=== PATIENT | male | born 1960 | race Caucasian/White ===

== ENCOUNTER 2018-01-08 14:36 | Emergency (ER) | payer OTHER ==
[~2018-01-08] VITALS: Ht 162.6 cm; Wt 70.3 kg
[~2018-01-08 14:36] MED LIST: AMOXICILLIN500 M2 PO; ASPIRIN81 M4 PO; CLONAZEPAM0.5 M2 PO; COLACE100 M1 PO; DIAZEPAM2 M1 PO; DOCUSATE SODIU100 M3 PO; ESCITALOPRAM OX20 MG PO; FLUOXETINE HCL20 M2 PO; GABAPENTIN100 M2 PO; GABAPENTIN400 M2 PO; IBUPROFEN600 M1 PO; LIDOCAINE HCL V15 ML PO; LIDODERM1 EACH EXT; LISINOPRIL10 M1 PO; MELATONIN3 M4 PO; MELATONIN5 M7 PO; PENICILLIN V P500 M1 PO; RISPERDAL1 M1 PO; RISPERIDONE3 M1 PO; TAMSULOSIN HCL0.4 M1 PO; TOPIRAMATE25 M2 PO; TRAZODONE HCL50 M1 PO
--- NOTE | 2018-01-08 17:32 | ED PSYCHIATRIC COMPLAINT ---
See Addendum History of Present Illness General Chief Complaint: Psychiatric Related Complaint Stated Complaint: DEPRESSION, ANXIETY, DENIES SI/HI Source: patient Exam Limitations: no limitations Vital Signs & Intake/Output Vital Signs & Intake/Output Vital Signs Date Time Temp Pulse Resp B/P B/P Pulse O2 O2 Flow FiO2 Mean Ox Delivery Rate 01/09 1002 97.9 81 20 103/72 95 01/09 0657 97.7 74 18 141/80 99 Room Air 01/09 0220 97.4 67 18 98/54 96 Room Air 01/08 2237 97.5 60 18 103/59 97 Room Air Room Air 01/08 1908 98.0 77 20 127/85 96 01/08 1442 96.0 70 20 160/95 98 Room Air ED Intake and Output 01/09 0000 01/08 1200 Intake Total 120 Output Total Balance 120 Intake, Oral 120 Patient 155 lb Weight Weight Reported by Patient Measurement Method Allergies Coded Allergies: No Known Allergies (10/08/17) Reconcile Medications Aspirin (Aspirin*) 81 MG TAB.CHEW 1 TAB PO DAILY cardiac prevention Diazepam 2 MG TABLET 1 TAB PO TID anxiety Docusate Sodium 100 MG CAPSULE 1 CAP PO DAILY constipation Fluoxetine HCl 20 MG CAPSULE 3 CAP PO DAILY depression Gabapentin 400 MG CAPSULE 1 TAB PO TID anxiety Ibuprofen 600 MG TABLET 1 TAB PO Q6P PRN shoulder pain Lidocaine (Lidoderm) 5 % ADH..PATCH 1 PAT EXT DAILY shoulder pain Lidocaine HCl (Lidocaine HCl Viscous) 2 % SOLUTION 15 ML PO TID PRN mouth sore Lisinopril 10 MG TABLET 1 TAB PO DAILY htn Melatonin 5 MG TABLET 1 TAB PO QPM insomnia Risperidone (Risperdal) 1 MG TABLET 1 TAB PO DAILY PARAMOIA SOMATIC DELUSION Risperidone 3 MG TABLET 1 TAB PO AT BEDTIME PARANOIA SOMATIC DELUSIONS Topiramate 25 MG TABLET 2 TAB PO BID headaches Trazodone HCl 50 MG TABLET 1 TAB PO AT BEDTIME NEEDED PRN INSOMNIA Triage Note: PT TO [facility] FROM HOME FOR EVAL OF MULTIPLE COMPLAINTS. PT LIVES ALONE IS NOT ABLE TO CARE FOR HIMSELF SINCE HIS MOTHER 1 YEAR AGO. PT HAS BEEN CALLING 911 MULTIPLE TIMES FOR HELP. TODAY PD MADE PT COME TO ED FOR EVAL OF FAILURE TO THRIVE AND DEPRESSION. PT DENIES HI/SI. Triage Nurses Notes Reviewed? yes Onset: Gradual Duration: worse persistent since ("a while") Timing: recent history Severity: moderate Associated Symptoms: anxiety, impaired concentration, insomnia HPI: Patient is a 57-year-old with history of depression and anxiety to the emergency department today via EMS with chief complaint of worsening depression, anxiety and failure to care for himself at home. Patient reports that he has not taken his meds" and while". Denies any hallucinations or feeling paranoid. Patient denies any drug or alcohol use. No tobacco use. Patient complaining that his toenails are very long and he has bunions and he has noted take care of it for him. Patient denying any nausea vomiting fevers or chills chest pain or shortness of breath. Denies any homicidal or suicidal ideation. History of similar symptoms 1 year ago. (Mervat May) Past History Travel History Traveled to [place] past 21 day No Medical History Any Pertinent Medical History? see below for history Neurological: Left vertrebral stroke 1991; right peripheral vision deficit remains. 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 No (Mervat May) Review of Systems Review of Systems Constitutional: Reports: no symptoms. Comments Review of systems: See HPI, All other systems negative. Constitutional, no chills fever or weight loss HEENT: No visual changes no sore throat no congestion Cardiovascular: No chest pain ,palpitation , orthopnea or ankle swelling Skin, no jaundice no rashes Respiratory: No dyspnea cough sputum or hemoptysis GI: No nausea no vomiting : No dysuria No hematuria Muscle skeletal: no back pain, no neck pain, Neurologic: No numbness NO HEADACHES Psych: Positive anxiety and depression Heme/endocrine: No bruising no bleeding no polyuria or polydipsia Immunology: No splenectomy or history of AIDS (Mervat May) Physical Exam Physical Exam General Appearance: no apparent distress, alert, awake, SLIGHTLY DISHEVELED Neurological/Psychiatric: no motor/sensory deficits, awake Comments: Well-developed well-nourished person in no acute distress HEENT:extraocular motion intact, no nystagmus. Pupils equally round and reactive to light and accommodation. Nose is atraumatic. External auditory canal and Tympanic membranes clear. Pharynx normal. No swelling or edema. Neck: Normal inspection Cardiovascular: Regular rate and rhythms no murmurs rubs or gallops, normal JVP Respiratory: Chest nontender. No respiratory distress.breath sounds clear to auscultation bilaterally Extremity: No edema Neuro: Alert oriented x3 Skin: No appreciable rash on exposed skin, skin is warm and dry. Psych: Appears disheveled, TANGETAL SPEECH, poor memory SAD PERSONS Done? patient not suicidal (Mervat May) Progress Differential Diagnosis: MAJOR DEPRESSION, ANXIETY, BIPOLAR, MOOD DISORDER Plan of Care: Orders Procedure Date/time Status Regular Diet 01/09 B Active ED CRISIS PSYCH CONSULT 01/08 1731 Active URINE DRUGS OF ABUSE 01/08 1522 Complete ETHANOL 01/08 1522 Complete COMPREHENSIVE METABOLIC PANEL 01/08 1522 Complete CBC WITHOUT DIFFERENTIAL 01/08 1522 Complete Current Medications Sig/Aliza Start time Last Medication Dose Stop Time Status Admin Fluoxetine HCl 60 MG DAILY 01/09 1000 UNVr (Prozac) Gabapentin 400 MG TID 01/09 1000 UNVr (Neurontin) Lisinopril 10 MG DAILY 01/09 1000 UNVr (Prinivil) Risperidone 1 MG DAILY 01/09 1000 UNVr (Risperidone) Topiramate 50 MG BID 01/09 1000 UNVr (Topamax) Laboratory Tests 01/08/18 1807: Urine Opiates Screen < 100.00, Methadone Screen < 40, Barbiturate Screen < 60, Ur Phencyclidine Scrn < 6.00, Amphetamines Screen < 100, U Benzodiazepines Scrn < 85, Urine Cocaine Screen < 50, Urine Cannabis Screen < 5.00 01/08/18 1800: Anion Gap 13, Estimated GFR > 60, BUN/Creatinine Ratio 11.7, Glucose 77, Calcium 9.8, Total Bilirubin 2.9 H, AST 31, ALT 56, Alkaline Phosphatase 73, Total Protein 7.3, Albumin 4.9, Globulin 2.4, Albumin/Globulin Ratio 2.0, CBC w Diff NO MAN DIFF REQ, RBC 5.33, MCV 86.8, MCH 29.1, MCHC 33.6, RDW 13.4, MPV 8.2, Gran % 71.0, Lymphocytes % 20.4 L, Monocytes % 7.9, Eosinophils % 0.5, Basophils % 0.2, Absolute Granulocytes 4.9, Absolute Lymphocytes 1.4, Absolute Monocytes 0.6, Absolute Eosinophils 0, Absolute Basophils 0, Serum Alcohol < 10.0 Hand-Off Endorsed To: Inocencio Macedo MD Endorsed Time: 0100 Pending: consult Comments: Patient requesting trazodone for sleep. Patient has been on trazodone according to med reconciliation in the past. Patient will be signed out to Dr. Macedo pending crisis evaluation in the morning. (Mervat May) Hand-Off Endorsed To: Kwadwo Thomas DO Endorsed Time: 0700 Pending: consult (CRISIS RE-EVAL) (Inocencio Macedo MD) Departure Departure Disposition: STILL A PATIENT Condition: Stable Clinical Impression Primary Impression: Schizophrenia Qualifiers: Schizophrenia type: unspecified Qualified Code: F20.9 - Schizophrenia, unspecified Referrals: Sacha Long APRN (PCP/Family) Departure Forms: Customer Survey General Discharge Information (Mervat May) PA/ASSOCIATE PRODUCER Co-Sign Statement Statement: ED Attending supervision documentation- [X] I saw and evaluated the patient. I have also reviewed all the pertinent lab results and diagnostic results. I agree with the findings and the plan of care as documented in the PA's/ASSOCIATE PRODUCER's documentation. [X] I have reviewed the ED Record and agree with the PA's/ASSOCIATE PRODUCER's documentation. [] Additions or exceptions (if any) to the PAs/ASSOCIATE PRODUCER's note and plan are summarized below: [] (Inocencio Macedo MD) Departure Comments 01/09/18 Patient signed out to me by Dr. Macedo. Pending disposition by crisis. (Kwadwo Thomas DO)
[2018-01-08 18:22] LABS: ABSOLUTE BASOPHIL COUNT 0 /CUMM (0.0-0.2); ABSOLUTE EOSINOPHIL COUNT 0 /CUMM (0.0-0.7); ABSOLUTE GRANULOCYTE CT 4.9 /CUMM (1.4-6.5); ABSOLUTE LYMPH COUNT 1.4 /CUMM (1.2-3.4); ABSOLUTE MONOCYTE COUNT 0.6 /CUMM (0.10-0.60); BASOPHIL % 0.2 % (0.0-2.0); EOSINOPHIL % 0.5 % (0-5); HEMATOCRIT 46.3 % (42-52); MEAN CORPUSCULAR HGB 29.1 PG (27.0-31.0); MEAN CORPUSCULAR HGB CONC 33.6 G/DL (33.0-37.0); MEAN CORPUSCULAR VOLUME 86.8 FL (80.0-94.0); MEAN PLATELET VOLUME 8.2 FL (7.4-10.4); PLATELET COUNT 251 /CUMM (130-400); RBC DISTRIBUTION WIDTH 13.4 % (11.5-14.5); RED BLOOD CELL CT 5.33 /CUMM (4.70-6.10)
--- NOTE | 2018-01-08 22:14 | ED PSYCH CRISIS CONSULTATION ---
Crisis Consult Basic Assessment Date of Consult: 01/08/18 Responsible Person/Accompanied By: Brought in by ambulance from home-pt. called 911 Insurance Authorization: Insurance #1: Insurance name: MEDICARE [employer] HMO Policy number: [id number] ED Provider: Patient's ED Provider: Mervat May Primary Care Physician: Patient's PCP: Sacha Long APRN PCP's Current Psychiatrist: Dr. Bhaskar Tom MD Chief Complaint: Psychiatric Related Complaint Patient's Quote: "Serious anxiety and depression.Paranoid.Going through alot Present Illness: Patient presents to [facility] emergency department from home by ambulance after contacting EMS himself. Patient's primary complaint is "severe anxiety and depression." Patient also asserts he has been paranoid and "not acting right." Patient states he has been "going through a lot at home." Patient cites the first anniversary of his mother as one stressor. Patient reports not being functional since her . Patient lives alone in a private home which he used to share with his mother. He now has a conservator, erisa attorney Cynthia Mcghee. He has two sisters who he asserts are not supportive at this time. Patient also states several somatic complaints including shoulder pain, a tooth infection, unspecified prostate concern, and foot issues (overgrown nails to the point of being curled -Onychauxis). Patient hopes he can be transitioned into an assisted living facility but asserts he is not interested in a jail. His conservator has been helping him with the process of selling his current home towards that goal. Patient reports he does not leave his home and is quite isolative stating "I have shut off myself." Patient has been recently evaluated at several hospitals with the most recent ED visit at [facility] a few days ago. Patient was admitted to [facility]'s inpatient unit in September to October 2017. Patient did not follow up with discarge recommendation of intensive outpatient (IOP) at [facility]. Patient at that time was prescribed diazepam, trazadone, fluoxetine, topiramate, and gabapentin.It is unclear if he has followed up with medication management - patient was not able to list any of his current medications. Patient denies auditory or visual hallucinations. Patient denies current suicidal ideations but does assert he does not feel safe to be alone. Patient indicates he had a suicide attempt about 6 months ago by consuming more Gabapentin pills than prescribed stating "I took more Gabapentin than I should have." Patient reports suicidal ideation at that time as "Life is not worth living." Patient denies homicidal ideation. When asked about auditory/visual hallucinations, patient states "that a good question" and reported an experience somewhat like a premonition / delusion. Patient was very focused on his medical concerns during evaluation and often related back to another condition to report. Patient's urine toxicology is negative for all substances. Patient denies substance use but indicates he may have exceeded amount of his prescribed Trazadone. Patient denies abuse of any other substance or prescribed medication. Patient's Address: [address] [place] [address] Other CELL Who Do You Live With? Patient/Self Family/Informants Interviewed: cannot be obtained due to (Left voicemail with sister) Allergies - Coded Allergies: No Known Allergies (10/08/17) Current Medications - Scheduled Medications Aspirin (Aspirin*) 81 MG TAB.CHEW 1 TAB PO DAILY cardiac prevention #30 TAB Prescribed by Inocencio Coombs on 11/05/17 Diazepam 2 MG TABLET 1 TAB PO TID anxiety #45 TAB Prescribed by Inocencio Coombs on 11/05/17 Docusate Sodium 100 MG CAPSULE 1 CAP PO DAILY constipation #30 CAP Prescribed by Inocencio Coombs on 11/05/17 Fluoxetine HCl 20 MG CAPSULE 3 CAP PO DAILY depression #45 CAP Prescribed by Inocencio Coombs on 11/05/17 Gabapentin 400 MG CAPSULE 1 TAB PO TID anxiety #42 TAB Prescribed by Inocencio Coombs on 11/05/17 Lidocaine (Lidoderm) 5 % ADH..PATCH 1 PAT EXT DAILY shoulder pain #15 PATCH Prescribed by Inocencio Coombs on 11/05/17 Lisinopril 10 MG TABLET 1 TAB PO DAILY htn #14 TAB Prescribed by Inocencio Coombs on 11/05/17 Melatonin 5 MG TABLET 1 TAB PO QPM insomnia #30 TAB Prescribed by Inocencio Coombs on 11/05/17 Risperidone (Risperdal) 1 MG TABLET 1 TAB PO DAILY PARAMOIA SOMATIC DELUSION # 14 TAB Prescribed by Inocencio Coombs on 11/05/17 Risperidone 3 MG TABLET 1 TAB PO AT BEDTIME PARANOIA SOMATIC DELUSIONS #14 TAB Prescribed by Inocencio Coombs on 11/05/17 Topiramate 25 MG TABLET 2 TAB PO BID headaches #30 TAB Prescribed by Inocencio Coombs on 11/05/17 Scheduled PRN Medications Ibuprofen 600 MG TABLET 1 TAB PO Q6P PRN shoulder pain #60 TAB Prescribed by Inocencio Coombs on 11/05/17 Lidocaine HCl (Lidocaine HCl Viscous) 2 % SOLUTION 15 ML PO TID PRN mouth sore #1 BOT Prescribed by Inocencio Coombs on 11/05/17 Trazodone HCl 50 MG TABLET 1 TAB PO AT BEDTIME NEEDED PRN INSOMNIA #14 TBE Prescribed by Inocencio Coombs on 11/05/17 Laboratory Results: Laboratory Tests 01/08/18 1807: Urine Opiates Screen < 100.00, Methadone Screen < 40, Barbiturate Screen < 60, Ur Phencyclidine Scrn < 6.00, Amphetamines Screen < 100, U Benzodiazepines Scrn < 85, Urine Cocaine Screen < 50, Urine Cannabis Screen < 5.00 01/08/18 1800: Anion Gap 13, Estimated GFR > 60, BUN/Creatinine Ratio 11.7, Glucose 77, Calcium 9.8, Total Bilirubin 2.9 H, AST 31, ALT 56, Alkaline Phosphatase 73, Total Protein 7.3, Albumin 4.9, Globulin 2.4, Albumin/Globulin Ratio 2.0, CBC w Diff NO MAN DIFF REQ, RBC 5.33, MCV 86.8, MCH 29.1, MCHC 33.6, RDW 13.4, MPV 8.2, Gran % 71.0, Lymphocytes % 20.4 L, Monocytes % 7.9, Eosinophils % 0.5, Basophils % 0.2, Absolute Granulocytes 4.9, Absolute Lymphocytes 1.4, Absolute Monocytes 0.6, Absolute Eosinophils 0, Absolute Basophils 0, Serum Alcohol < 10.0 (Walter EMBOSSING MACHINE OPERATOR HELPER,Mick) Past History Past Medical History Any Pertinent Medical History? unobtainable Neurological: Left vertrebral stroke 1991; right peripheral vision deficit remains. 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 Physical Limitations (Interventions): He states that he has issues with his shoulder, teeth and his prostate. He has right lower jaw pain, with apossible abcess. He had a stroke in 1991. Psychiatric Treatment History Psych Treatment Psychiatric Treatment Yes Inpatient Treatment Yes Outpatient Treatment Yes Location of Treatment [facility] in [place] for outpatient treatment. ED visits Reason for Treatment Depression / Anxiety Dates of Treatment 2017-present Response to Treatment Patient has not been stable in past year Diagnosis by History: Per past crisis evaluation, sister reported he has been diagnosed with Dependant Personality Disorder. Substance Use/Abuse History Drug Use/Abuse Substances Used/Abused Yes Substance Used/Abused Other (list in comments) (Prescribed Trazadone) First Use 2017 Last Used Patient did not specify How much used/taken Patient did not report other than stating "more" than prescribed How often Daily For how long Unknown Route of use Ingestion Substance Abuse Treatment Substance Abuse Treatment Past Substance Abuse [place] No Comments: - (Mick Watson LCSW) Current Mental Status Mental Status Orientation: Person, Place, Situation Affect: Flat Speech: WNL Neuro-vegetative: Anhedonia, Concentration Poor, Energy Decreased, Sleep Disturbance Appearance Appearance- Dress/Hygiene: Patient dressed in hospital attire. Patient observed to have unkempt michael / hair. Patient reports difficulty grooming to due shoulder weakness. Behaviors Thought Process: WNL Thought Content: Paranoid Memory: WNL Insight: Fair SI/HI Risk Assessment Past Suicidal Ideation/Attempts Yes Current Suicidal Ideation/Att No Past Homicidal Ideation/Att: No Current Homicidal Ideation/Attempts No Degree of Intent: None Gravely Disabled: Inability Risk Factors: chronic/serious med cond., high anxiety/distress, SA/MH hospitalized, isolate/no social support, lives alone, male, limited support Lethality Ratin PTSD Checklist PTSD Done? patient declined (No trauma history identified) ED Management Sitter: Yes Restraints: No (Patient is calm & cooperative) (Mick Watson LCSW) DSM5/PS Stressors/Medical Prob Diagnosis' (DSM 5, Stressors, Medical): F32.9 Unspecified depressive disorder F41.1 Generalized anxiety disorder Current GAF: 28 Comments: Medical conditions (Walter EMBOSSING MACHINE OPERATOR HELPER,Mick) Departure Disposition Psych Medical Clearance Date: 01/08/18 Medically Cleared at: 2100 Time Started: 2099 Time Ended: 2199 Psychiatrist Consulted: Dr. Noreen Hollins Date Disposition Established: 01/08/18 Time Disposition Established: 2199 Plan for Disposition - Modality: Hold over for reassessment Rationale for Disposition: Patient is to be held over for further reassessment in the AM by department clinician. Crisis evaluation reviewed with on-call psychiatrist Dr. Hollins. Referrals Sacha Long APRN (PCP/Family) (Walter EMBOSSING MACHINE OPERATOR HELPER,Mick) Addendum Addendum 9:00 AM Crisis met with pt this am for re-evaluation. Pt denies SI/HI/AH/VH at present. He continues to experience worsening depression and anxiety . Pt has no plan or intent to harm himself. He is preoccupied primarily with his medical complaints and his housing. He notes he cannot return to his private home because he is too scared, lonely and can't stand being there. He says he feels he is not safe because he just stares out the window and thinks he might have another stroke from his anxiety. He says meals on wheels is terrible, his VNA "probably dropped him", he doesn't like to leave the house- only to go to the emergency rooms. He asked why he cannt stay at inpatient. SW educated pt on criteria for psychiatric admission and how it is not used for housing but for those who are risk to self/ others and gravely disabled. SW inquired why he did not follow up with IOP treatment recommendation following his hospitalization. He said he is embarrased of his swollen jaw due to tooth extracatoin. SW discussed IOP LOC and/ or in home therapy benefits. Pt appears ambivalent but ultimately stated he is open to treatment. However pt continues to state he cannot return home. 9:28 AM: VENESSA spoke with admin. contact center assistant " Karley" and left voicemail/ alerted conservator Maranda Mcghee ( both conservator of person and estate) [phone] / cell [phone] / fax [phone] is in the E.D and requested call back. Per Karley's report, pt is resistant to treatment recommendations, does not follow up with medical appts and suspect he believes he can keep his mothers house as well go to assisted living or supervised living. " We have tried everything with him." 9:46 AM: Maranda Mcghee reported pt has been to E.D 45x times this year in [place] alone. The police and mobile crisis have denied him ..mobile crisis went there 2 days ago and gave him an IOP referral which he refused . VNA services have been inconsistent as they discharge him when he goes to the hospital so there has been a lot of back and forth with re-initiating services. Maranda Mcghee tried to help pt sell his house as he agreed to it - had a a realator come out to the house. The pt later tried to call the police on Maranda Mcghee saying she tried to steal his house. Maranda Mcghee reports she is " at a loss and does not know what to do with him." They pay for someone to clean the house as he does not maintain the house or shower. Pt refuses all [place] services ie [facility], [facility] etc. 9:50 AM: called [facility] [phone] and inquired if he is still in their services. [facility] will follow up with agency and let know if he is a patient. [facility] visiting Nurse is no longer working with Jonathan. 10:00AM Jonathan continues to make somatic complaints ie sores on his feet, worried about infectious diseases in the hospital asking about soiled linens. Pt requested SW to call his sisters as he cannot walk to the phone. Voicemail left for sisters at 10:10AM Brooke [phone] and Liz [phone]. 11:00AM voicemail left with taras to discuss pending dispo. [facility] Case reviewed with Dr. Garcia and recommends IOP LOC. Pt given IOP intake 01/22 10:30 am and additional counseling resources. will arrange transportation through [employer] for pt to return home. [facility] is aware. [facility] also given resources of respite continuum of care in [place]. Pt is not eligible for [facility]. [facility] stated they have been using uber to get him home. (Jad SANDOVAL,Gosia)
[2018-01-09 13:03] VITALS: BP 105/61
== END 2018-01-09 13:15 | disposition still patient (30) ==
LOC: ERH 14:36
PROVIDERS: Emergency Medicine
DX: F20.9 Schizophrenia, unspecified (principal)
CPT/HCPCS: 80307; G0463; G0480